=== PATIENT | male | born 1965 | race African-American/Black ===

== ENCOUNTER 2017-03-16 08:58 | Emergency (ER) | payer SELFPAY ==
[~2017-03-16] VITALS: Ht 170.2 cm; Wt 87.0 kg
[2017-03-16] MEDS ORDERED: KETOROLAC 60MG/2ML VIAL IM ONE (10:30)
[2017-03-16 10:48] VITALS: BP 107/77
== END 2017-03-16 11:08 | disposition home or self-care (01) ==
LOC: ER 09:07
DX: M54.5 Low back pain (principal); F17.200 Nicotine dependence, unspecified, uncomplicated; F12.10 Cannabis abuse, uncomplicated; V49.88XA Car occupant (driver) (passenger) injured in other specified transport accidents, initial encounter; Y93.89 Activity, other specified; Y92.410 Unspecified street and highway as the place of occurrence of the external cause; Y99.8 Other external cause status
CPT/HCPCS: 96372; 99283; J1885

== ENCOUNTER 2018-05-16 05:54 | Emergency (ER) | payer OTHER ==
[~2018-05-16] VITALS: Ht 182.9 cm; Wt 91.0 kg
[2018-05-16 05:59] VITALS: BP 134/82
== END 2018-05-16 09:30 | disposition left against medical advice (07) ==
LOC: ER 05:54
DX: Z53.21 Procedure and treatment not carried out due to patient leaving prior to being seen by health care provider (principal); F17.200 Nicotine dependence, unspecified, uncomplicated

== ENCOUNTER 2018-08-18 17:32 | Emergency (ER) | payer OTHER ==
[~2018-08-18] VITALS: Ht 170.2 cm; Wt 84.0 kg
[2018-08-18 18:37] VITALS: BP 141/103
[2018-08-18] MEDS ORDERED: GLUCAGON,HUMAN RECOMBINANT 1MG/VIAL IM ONE (20:15)
== END 2018-08-18 22:01 | disposition left against medical advice (07) ==
LOC: ER 17:32
DX: R13.10 Dysphagia, unspecified (principal); F12.10 Cannabis abuse, uncomplicated
CPT/HCPCS: 96372; 99283; J1610

== ENCOUNTER 2018-08-30 05:11 | Emergency (ER) | payer OTHER ==
[~2018-08-30] VITALS: Ht 170.2 cm; Wt 84.0 kg
[2018-08-30] MEDS ORDERED: VISCOUS LIDOCAINE 2% 15 ML UDC MM ONE (06:30)
[2018-08-30 06:50] VITALS: BP 157/94
== END 2018-08-30 06:58 | disposition home or self-care (01) ==
LOC: ER 05:11
DX: R13.10 Dysphagia, unspecified (principal); F12.10 Cannabis abuse, uncomplicated
CPT/HCPCS: 99283

== ENCOUNTER 2018-10-24 00:08 | Emergency (ER) | payer OTHER ==
[~2018-10-24] VITALS: Ht 170.2 cm; Wt 84.0 kg
[2018-10-24 02:46] LABS: CLARITY URINE CLEAR (CLEAR); COLOR URINE YELLOW (YELLOW); KETONES URINE TRACE (NEGATIVE); LEUKOCYTE ESTERASE URINE NEGATIVE (NEGATIVE); NITRITE URINE NEGATIVE (NEGATIVE); OCCULT BLOOD URINE NEGATIVE (NEGATIVE); PROTEIN URINE NEGATIVE (NEGATIVE); SPECIFIC GRAVITY URINE 1.028 (1.005-1.030)
[2018-10-24 02:50] LABS: BASOPHILS % 1.1 % (0.0-2.0); EOSINOPHILS % 6.1 % (0.0-5.0); HEMATOCRIT. 37.5 % (42.0-52.0); HEMOGLOBIN. 12.4 g/dL (14.0-18.0); LYMPHOCYTES % 26.3 % (20.0-50.0); MEAN CORPUSCULAR HEMOGLOBIN 30.4 pg (28.0-32.0); MEAN CORPUSCULAR VOLUME 91.8 fL (80.0-94.0); MEAN PLATELET VOLUME 8.4 fl (7.4-10.4); MONOCYTES % 13.2 % (2.0-8.0); NEUTROPHILS % 53.3 % (40.0-76.0); PLATELET 224 x1000/uL (130-400); RED BLOOD CELL COUNT 4.09 mill/uL (4.7-6.1)
[2018-10-24 02:57] LABS: CHLORIDE 109 mEq/L (98-107)
[2018-10-24 03:44] VITALS: BP 132/85
== END 2018-10-24 03:45 | disposition home or self-care (01) ==
LOC: ER 00:08
DX: R10.13 Epigastric pain (principal); F12.10 Cannabis abuse, uncomplicated; Z87.891 Personal history of nicotine dependence
CPT/HCPCS: 36415; 80053; 81003; 83605; 83690; 85025; 99283; Z7610

== ENCOUNTER 2019-01-01 10:06 | Emergency (ER) | payer MEDICAID, OTHER ==
[~2019-01-01] VITALS: Ht 170.2 cm; Wt 84.0 kg
[2019-01-01] MEDS ORDERED: KETOROLAC 30MG/ML VIAL IV STA (10:55)
[2019-01-01] MEDS ORDERED: SODIUM CHLORIDE 0.9% 1,000 ML IV ONE (10:55)
[2019-01-01] MEDS ORDERED: FAMOTIDINE 20MG/2ML VIAL IV STA (10:55)
[2019-01-01 11:23] LABS: BASOPHILS % 1.1 % (0.0-2.0); EOSINOPHILS % 3.6 % (0.0-5.0); HEMATOCRIT. 45.1 % (42.0-52.0); HEMOGLOBIN. 14.6 g/dL (14.0-18.0); LYMPHOCYTES % 15.2 % (20.0-50.0); MEAN CORPUSCULAR HEMOGLOBIN 30.5 pg (28.0-32.0); MEAN PLATELET VOLUME 8.4 fl (7.4-10.4); MONOCYTES % 7.6 % (2.0-8.0); NEUTROPHILS % 72.5 % (40.0-76.0); PLATELET 308 x1000/uL (130-400); RED BLOOD CELL COUNT 4.79 mill/uL (4.7-6.1); RED CELL DISTRIBUTION WIDTH 15.6 % (11.6-14.6)
[2019-01-01 11:29] LABS: CHLORIDE 106 mEq/L (98-107)
[2019-01-01 11:30] LABS: CLARITY URINE CLEAR (CLEAR); COLOR URINE YELLOW (YELLOW); KETONES URINE TRACE (NEGATIVE); LEUKOCYTE ESTERASE URINE NEGATIVE (NEGATIVE); NITRITE URINE NEGATIVE (NEGATIVE); OCCULT BLOOD URINE NEGATIVE (NEGATIVE); PROTEIN URINE NEGATIVE (NEGATIVE); SPECIFIC GRAVITY URINE 1.023 (1.005-1.030); UROBILINOGEN URINE 0.2 E.U./dL (0.2-1.0)
[2019-01-01 11:31] LABS: INR 0.9; PROTHROMBIN TIME 9.5 sec (9.6-11.0)
[2019-01-01 14:50] VITALS: BP 139/101
== END 2019-01-01 15:17 | disposition home or self-care (01) ==
LOC: ER 10:06
DX: R10.33 Periumbilical pain (principal); F12.10 Cannabis abuse, uncomplicated
CPT/HCPCS: 36415; 74176; 80053; 81003; 83690; 85025; 85610; 96361; 96374; 96375; 99284; J1885; J3490; J7030; Z7610

== ENCOUNTER 2019-01-21 06:08 | Emergency (ER) | payer MEDICAID ==
[~2019-01-21] VITALS: Ht 170.2 cm; Wt 85.0 kg
[2019-01-21 08:43] LABS: BASOPHILS % 0.9 % (0.0-2.0); EOSINOPHILS % 4.4 % (0.0-5.0); HEMATOCRIT. 41.8 % (42.0-52.0); HEMOGLOBIN. 13.6 g/dL (14.0-18.0); LYMPHOCYTES % 19.2 % (20.0-50.0); MEAN CORPUSCULAR HEMOGLOBIN 30.3 pg (28.0-32.0); MEAN CORPUSCULAR VOLUME 93.3 fL (80.0-94.0); MEAN PLATELET VOLUME 8.2 fl (7.4-10.4); MONOCYTES % 8.1 % (2.0-8.0); NEUTROPHILS % 67.4 % (40.0-76.0); PLATELET 301 x1000/uL (130-400); RED BLOOD CELL COUNT 4.49 mill/uL (4.7-6.1); RED CELL DISTRIBUTION WIDTH 15.7 % (11.6-14.6)
[2019-01-21 08:45] LABS: CLARITY URINE CLEAR (CLEAR); COLOR URINE YELLOW (YELLOW); KETONES URINE NEGATIVE (NEGATIVE); LEUKOCYTE ESTERASE URINE NEGATIVE (NEGATIVE); NITRITE URINE NEGATIVE (NEGATIVE); OCCULT BLOOD URINE NEGATIVE (NEGATIVE); PROTEIN URINE NEGATIVE (NEGATIVE); SPECIFIC GRAVITY URINE 1.024 (1.005-1.030); UROBILINOGEN URINE 0.2 E.U./dL (0.2-1.0)
[2019-01-21 08:50] LABS: CHLORIDE 110 mEq/L (98-107)
[2019-01-21 10:15] VITALS: BP 161/109
== END 2019-01-21 10:35 | disposition home or self-care (01) ==
LOC: ER 06:08
DX: R10.9 Unspecified abdominal pain (principal); R19.7 Diarrhea, unspecified; F12.10 Cannabis abuse, uncomplicated
CPT/HCPCS: 36415; 80053; 81003; 83690; 85025; 99283; Z7610

== ENCOUNTER 2019-10-15 16:14 | Emergency (ER) | payer MEDICAID ==
[~2019-10-15] VITALS: Ht 175.3 cm; Wt 82.0 kg
[2019-10-15] MEDS ORDERED: IBUPROFEN 600MG TABLET PO STA (19:02)
[2019-10-15 20:35] VITALS: BP 132/99
== END 2019-10-15 20:36 | disposition home or self-care (01) ==
LOC: ER 16:14
DX: S22.32XA Fracture of one rib, left side, initial encounter for closed fracture (principal); Y08.89XA Assault by other specified means, initial encounter; Y93.9 Activity, unspecified; Y92.9 Unspecified place or not applicable
CPT/HCPCS: 71101; 99283

== ENCOUNTER 2019-10-17 06:54 | Emergency (ER) | payer MEDICAID ==
[~2019-10-17] VITALS: Ht 170.2 cm; Wt 84.0 kg
[2019-10-17 07:02] VITALS: BP 124/85
[2019-10-17] MEDS ORDERED: KETOROLAC 60MG/2ML VIAL IM ONE (08:45)
== END 2019-10-17 09:26 | disposition home or self-care (01) ==
LOC: ER 06:54
DX: S22.5XXA Flail chest, initial encounter for closed fracture (principal); S27.9XXA Injury of unspecified intrathoracic organ, initial encounter; F12.10 Cannabis abuse, uncomplicated; X58.XXXA Exposure to other specified factors, initial encounter; Y93.89 Activity, other specified; Y92.89 Other specified places as the place of occurrence of the external cause; Y99.8 Other external cause status
CPT/HCPCS: 96372; 99283; J1885

== ENCOUNTER 2019-10-22 06:55 | Emergency (ER) | payer MEDICAID ==
[~2019-10-22] VITALS: Ht 170.2 cm; Wt 83.9 kg
[2019-10-22] MEDS ORDERED: OXYCODONE HCL/ACETAMINOPHEN 5/325MG TABLET PO ONE (07:45)
[2019-10-22 10:20] VITALS: BP 154/88
== END 2019-10-22 10:20 | disposition home or self-care (01) ==
LOC: ER 06:55
DX: R07.81 Pleurodynia (principal); R06.2 Wheezing; I51.7 Cardiomegaly
CPT/HCPCS: 71045; 99283

== ENCOUNTER 2020-07-19 06:32 | Emergency (ER) | payer MEDICAID ==
[~2020-07-19] VITALS: Ht 170.2 cm; Wt 84.0 kg
[2020-07-19] MEDS ORDERED: ACETAMINOPHEN 325MG TABLET PO ONE (07:15)
[2020-07-19] MEDS ORDERED: TETANUS, DIPHTHERIA, PERTUSSIS VAC/PF 0.5ML (>7YR OLD) IM ONE (07:15)
[2020-07-19] MEDS ORDERED: HYDROCHLOROTHIAZIDE 25MG TABLET PO ONE (07:15)
[2020-07-19] MEDS ORDERED: SULF1TAB48 PO (08:04)
[2020-07-19] MEDS ORDERED: CEPH500C2 PO (08:04)
[2020-07-19] MEDS ORDERED: TOPUD PO (08:04)
[2020-07-19] MEDS ORDERED: HYDR25TA PO (08:04)
[2020-07-19 08:26] VITALS: BP 163/99
== END 2020-07-19 08:28 | disposition home or self-care (01) ==
LOC: ER 06:38
DX: S81.852A Open bite, left lower leg, initial encounter (principal); I10 Essential (primary) hypertension; F12.10 Cannabis abuse, uncomplicated; F17.210 Nicotine dependence, cigarettes, uncomplicated; W54.0XXA Bitten by dog, initial encounter; Y93.89 Activity, other specified; Y92.018 Other place in single-family (private) house as the place of occurrence of the external cause
CPT/HCPCS: 90471; 90715; 93005; 99283

== ENCOUNTER 2021-03-10 23:29 | Inpatient (IN) | payer MEDICAID ==
[~2021-03-10] VITALS: Ht 177.8 cm; Wt 77.2 kg
[~2021-03-10 23:29] MED LIST: CEPH500C2 PO; ETOMIDATE 2MG/ML 10ML VIAL IV ONE; HYDR25TA PO; SODIUM CHLORIDE 0.9% 10ML VIAL ONE; SUCCINYLCHOLINE CHLORIDE 200MG/10ML IV ONE; SULF1TAB48 PO; TOPUD PO
[2021-03-11] VITALS (62 sets, daily range): BP systolic 39–181; BP diastolic 28–138
[2021-03-11 01:54] LABS: BASOPHILS % 0.4 % (0.0-2.0); EOSINOPHILS % 0.8 % (0.0-5.0); HEMATOCRIT. 43.7 % (42.0-52.0); LYMPHOCYTES % 24.1 % (20.0-50.0); MEAN CORPUSCULAR HEMOGLOBIN 30.3 pg (28.0-32.0); MEAN CORPUSCULAR VOLUME 94.8 fL (80.0-94.0); MEAN PLATELET VOLUME 8.6 fl (7.4-10.4); MONOCYTES % 5.5 % (2.0-8.0); NEUTROPHILS % 69.2 % (40.0-76.0); PLATELET 299 x1000/uL (130-400); RED BLOOD CELL COUNT 4.61 mill/uL (4.7-6.1); RED CELL DISTRIBUTION WIDTH 15.7 % (11.6-14.6)
[2021-03-11] MEDS ORDERED: NALOXONE HCL 1 MG/ML 2ML VIAL IV ONE (02:00)
[2021-03-11 02:01] LABS: CHLORIDE 105 mEq/L (98-107)
[2021-03-11 02:09] LABS: ETHANOL BLOOD 52 mg/dL
[2021-03-11 02:17] LABS: BG BASE EXCESS -6.7 mmol/L (-2.0-2.0); BG CARBOXYHEMOGLOBIN 1.8 % (0.5-1.5); BG DEOXYHEMOGLOBIN 3.8 % (0.0-5.0); BG FRACTION INSPIRED OXYGEN 100; BG HCO3 ACT 29.2 mmol/L (22.0-26.0); BG METHEMOGLOBIN 0.4 % (0.0-1.5); BG OXYGEN SATURATION 96.1 % (92.0-98.5); BG PCO2 133.9 mmHg (35.0-45.0); BG PH 6.957 (7.350-7.450); BG PO2 116.9 mmHg (75.0-100.0); BG SAMPLE SITE RIGHT RADIAL; BG TOTAL HEMOGLOBIN 14.9 g/dL (12.0-18.0); BG VENT MODE MASK - NRB
[2021-03-11] MEDS ORDERED: ETOMIDATE 2MG/ML 10ML VIAL IV ONE (02:30)
[2021-03-11] MEDS ORDERED: SUCCINYLCHOLINE CHLORIDE 200MG/10ML IV ONE (02:30)
[2021-03-11] MEDS ORDERED: PROPOFOL 10MG/ML 100ML 100 ML IV SCH (02:30)
[2021-03-11 04:22] LABS: CLARITY URINE CLEAR (CLEAR); COLOR URINE YELLOW (YELLOW); KETONES URINE TRACE (NEGATIVE); LEUKOCYTE ESTERASE URINE NEGATIVE (NEGATIVE); NITRITE URINE NEGATIVE (NEGATIVE); OCCULT BLOOD URINE NEGATIVE (NEGATIVE); PROTEIN URINE NEGATIVE (NEGATIVE); SPECIFIC GRAVITY URINE 1.014 (1.005-1.030); UROBILINOGEN URINE 0.2 E.U./dL (0.2-1.0)
[2021-03-11 04:31] LABS: *COCAINE SCREEN URINE PRESUMTIVE POSITIVE (NEGATIVE); METHADONE URINE SCREEN NEGATIVE (NEGATIVE); OPIATES URINE SCREEN NEGATIVE (NEGATIVE)
[2021-03-11 04:33] LABS: *AMPHETAMINES SCREEN URINE NEGATIVE (NEGATIVE); *BARBITURATES SCREEN URINE NEGATIVE (NEGATIVE); *BENZODIAZEPINES SCREEN URINE PRESUMTIVE POSITIVE (NEGATIVE); CANNABINOID URINE SCREEN PRESUMTIVE POSITIVE (NEGATIVE); PHENCYCLIDINE URINE SCREEN NEGATIVE (NEGATIVE)
[2021-03-11 05:44] LABS: BG BASE EXCESS -0.1 mmol/L (-2.0-2.0); BG CARBOXYHEMOGLOBIN 0.9 % (0.5-1.5); BG DEOXYHEMOGLOBIN 0.9 % (0.0-5.0); BG FRACTION INSPIRED OXYGEN 60; BG HCO3 ACT 23.9 mmol/L (22.0-26.0); BG METHEMOGLOBIN 0.2 % (0.0-1.5); BG OXYGEN SATURATION 99.1 % (92.0-98.5); BG PCO2 36.9 mmHg (35.0-45.0); BG PH 7.429 (7.350-7.450); BG PO2 169.9 mmHg (75.0-100.0); BG SAMPLE SITE RIGHT RADIAL; BG VENT MODE ac
[2021-03-11] MEDS ORDERED: LORAZEPAM 2MG/ML CPJ IV PRN (07:45)
[2021-03-11] MEDS ORDERED: DEXTROSE 50% WATER 50ML SYRINGE IV PRN (07:45)
[2021-03-11] MEDS ORDERED: INSULIN LISPRO 100 UNITS/ML SUBCUT SCH (08:20)
[2021-03-11] MEDS ORDERED: BLOOD SUGAR DIAGNOSTIC STRIP TEST SCH (09:00)
[2021-03-11] MEDS ORDERED: IPRATROPIUM/ALBUTEROL 0.5-3(2.5)MG/3ML NEB HHN PRN (10:45)
[2021-03-11] MEDS: PANTOPRAZOLE SODIUM 40 MG/VIAL IV SCH (11:59)
[2021-03-11] MEDS: SODIUM CHLORIDE 0.9% 1,000 ML IV SCH (11:59)
[2021-03-11] MEDS: ENOXAPARIN 40MG/0.4ML SYR SUBCUT SCH (12:00)
[2021-03-11] MEDS: INSULIN LISPRO 100 UNITS/ML SUBCUT SCH ×2 (12:00→18:00)
[2021-03-11] MEDS: PROPOFOL 10MG/ML 100ML 100 ML IV PRN (12:01)
[2021-03-11] MEDS: BLOOD SUGAR DIAGNOSTIC STRIP TEST SCH ×2 (12:47→18:36)
[2021-03-11 13:25] LABS: BASOPHILS % 0.4 % (0.0-2.0); EOSINOPHILS % 0.5 % (0.0-5.0); HEMATOCRIT. 40.4 % (42.0-52.0); HEMOGLOBIN. 12.9 g/dL (14.0-18.0); LYMPHOCYTES % 18.3 % (20.0-50.0); MEAN CORPUSCULAR HEMOGLOBIN 29.9 pg (28.0-32.0); MEAN CORPUSCULAR VOLUME 93.4 fL (80.0-94.0); MEAN PLATELET VOLUME 8.5 fl (7.4-10.4); MONOCYTES % 9.5 % (2.0-8.0); NEUTROPHILS % 71.3 % (40.0-76.0); PLATELET 245 x1000/uL (130-400); RED BLOOD CELL COUNT 4.32 mill/uL (4.7-6.1); RED CELL DISTRIBUTION WIDTH 15.3 % (11.6-14.6)
[2021-03-11 13:31] LABS: CHLORIDE 110 mEq/L (98-107)
[2021-03-11] MEDS: IPRATROPIUM/ALBUTEROL 0.5-3(2.5)MG/3ML NEB HHN SCH ×2 (14:06→20:00)
[2021-03-12] VITALS (79 sets, daily range): BP systolic 100–188; BP diastolic 67–131
[2021-03-12] MEDS: SODIUM CHLORIDE 0.9% 1,000 ML IV SCH ×3 (01:35→22:30)
[2021-03-12] MEDS: IPRATROPIUM/ALBUTEROL 0.5-3(2.5)MG/3ML NEB HHN SCH ×4 (02:04→21:20)
[2021-03-12] MEDS: PROPOFOL 10MG/ML 100ML 100 ML IV PRN ×2 (02:19→08:05)
[2021-03-12] MEDS: BLOOD SUGAR DIAGNOSTIC STRIP TEST SCH ×4 (06:00→18:59)
[2021-03-12] MEDS: INSULIN LISPRO 100 UNITS/ML SUBCUT SCH ×4 (06:00→19:08)
[2021-03-12] MEDS: PANTOPRAZOLE SODIUM 40 MG/VIAL IV SCH (09:02)
[2021-03-12] MEDS ORDERED: PROPOFOL 10MG/ML 100ML 100 ML IV PRN (10:45)
[2021-03-12] MEDS: ENOXAPARIN 40MG/0.4ML SYR SUBCUT SCH (12:23)
[2021-03-12] MEDS: AMLODIPINE 5MG TABLET PO SCH ×2 (12:23→21:50)
[2021-03-12 12:42] LABS: HEMATOCRIT 39.5 % (42.0-52.0); HEMOGLOBIN 12.9 g/dL (14.0-18.0); MEAN CORPUSCULAR HEMOGLOBIN 30.6 pg (28.0-32.0); PLATELET 211 x1000/uL (130-400); RED BLOOD CELL COUNT 4.21 mill/uL (4.7-6.1); RED CELL DISTRIBUTION WIDTH 15.4 % (11.6-14.6)
[2021-03-12 12:48] LABS: BG BASE EXCESS 0.2 mmol/L (-2.0-2.0); BG CARBOXYHEMOGLOBIN 0.6 % (0.5-1.5); BG DEOXYHEMOGLOBIN 1.9 % (0.0-5.0); BG FRACTION INSPIRED OXYGEN 40; BG HCO3 ACT 26.4 mmol/L (22.0-26.0); BG METHEMOGLOBIN 0.3 % (0.0-1.5); BG OXYGEN SATURATION 98.1 % (92.0-98.5); BG OXYHEMOGLOBIN 97.2 % (94.0-97.0); BG PCO2 49.3 mmHg (35.0-45.0); BG PH 7.347 (7.350-7.450); BG PO2 110.2 mmHg (75.0-100.0); BG SAMPLE SITE RIGHT RADIAL; BG TOTAL HEMOGLOBIN 13.4 g/dL (12.0-18.0); BG TOTAL RESPIRATORY RATE 11 b/min; BG VENT MODE VENT - SIMV
[2021-03-12 12:51] LABS: CHLORIDE 111 mEq/L (98-107)
[2021-03-12] MEDS: PIPERACILLIN/TAZOBACTAM 3.375G in DEXT 5% WATER 50ML IV SCH ×2 (15:15)
[2021-03-12] MEDS ORDERED: CLONIDINE 0.1MG TABLET PO PRN (15:15)
[2021-03-12] MEDS: HYDRALAZINE 20MG/ML VIAL IV PRN ×2 (15:16→21:51)
[2021-03-12 15:59] LABS: BG BASE EXCESS -0.7 mmol/L (-2.0-2.0); BG CARBOXYHEMOGLOBIN 0.5 % (0.5-1.5); BG DEOXYHEMOGLOBIN 2.7 % (0.0-5.0); BG FRACTION INSPIRED OXYGEN 40; BG HCO3 ACT 24.1 mmol/L (22.0-26.0); BG METHEMOGLOBIN 0.3 % (0.0-1.5); BG OXYGEN SATURATION 97.3 % (92.0-98.5); BG OXYHEMOGLOBIN 96.5 % (94.0-97.0); BG PCO2 40.7 mmHg (35.0-45.0); BG PH 7.391 (7.350-7.450); BG SAMPLE SITE LEFT RADIAL; BG TOTAL HEMOGLOBIN 13.5 g/dL (12.0-18.0); BG TOTAL RESPIRATORY RATE 15 b/min; BG VENT MODE VENT - CPAP
[2021-03-12 20:29] LABS: BG BASE EXCESS 1.8 mmol/L (-2.0-2.0); BG CARBOXYHEMOGLOBIN 0.6 % (0.5-1.5); BG DEOXYHEMOGLOBIN 1.8 % (0.0-5.0); BG FRACTION INSPIRED OXYGEN 40; BG HCO3 ACT 27.5 mmol/L (22.0-26.0); BG METHEMOGLOBIN 0.2 % (0.0-1.5); BG OXYGEN SATURATION 98.2 % (92.0-98.5); BG OXYHEMOGLOBIN 97.4 % (94.0-97.0); BG PCO2 47.3 mmHg (35.0-45.0); BG PH 7.383 (7.350-7.450); BG PO2 112.5 mmHg (75.0-100.0); BG SAMPLE SITE RIGHT RADIAL; BG TOTAL HEMOGLOBIN 13.8 g/dL (12.0-18.0); BG VENT MODE COOL AEROSOL
[2021-03-13] VITALS (16 sets, daily range): BP systolic 126–177; BP diastolic 79–121
[2021-03-13] MEDS: BLOOD SUGAR DIAGNOSTIC STRIP TEST SCH ×4 (00:33→18:47)
[2021-03-13] MEDS: IPRATROPIUM/ALBUTEROL 0.5-3(2.5)MG/3ML NEB HHN SCH ×4 (01:27→20:55)
[2021-03-13 05:07] LABS: BASOPHILS % 0.4 % (0.0-2.0); EOSINOPHILS % 0.7 % (0.0-5.0); HEMATOCRIT. 41.7 % (42.0-52.0); HEMOGLOBIN. 13.3 g/dL (14.0-18.0); LYMPHOCYTES % 18.1 % (20.0-50.0); MEAN CORPUSCULAR HEMOGLOBIN 30.1 pg (28.0-32.0); MEAN PLATELET VOLUME 9.1 fl (7.4-10.4); MONOCYTES % 7.2 % (2.0-8.0); NEUTROPHILS % 73.6 % (40.0-76.0); PLATELET 205 x1000/uL (130-400); RED BLOOD CELL COUNT 4.43 mill/uL (4.7-6.1); RED CELL DISTRIBUTION WIDTH 15.3 % (11.6-14.6)
[2021-03-13 05:20] LABS: CHLORIDE 108 mEq/L (98-107)
[2021-03-13] MEDS: INSULIN LISPRO 100 UNITS/ML SUBCUT SCH ×4 (05:22→18:00)
[2021-03-13] MEDS: PIPERACILLIN/TAZOBACTAM 3.375G in DEXT 5% WATER 50ML IV SCH ×3 (05:23→21:43)
[2021-03-13] MEDS: PANTOPRAZOLE SODIUM 40 MG/VIAL IV SCH (09:25)
[2021-03-13] MEDS: LISINOPRIL 5MG TABLET PO SCH (09:26)
[2021-03-13] MEDS: AMLODIPINE 5MG TABLET PO SCH ×2 (09:26→21:43)
[2021-03-13 11:45] LABS: BG BASE EXCESS 1.1 mmol/L (-2.0-2.0); BG CARBOXYHEMOGLOBIN 0.2 % (0.5-1.5); BG DEOXYHEMOGLOBIN 3.6 % (0.0-5.0); BG HCO3 ACT 25.9 mmol/L (22.0-26.0); BG METHEMOGLOBIN 0.2 % (0.0-1.5); BG OXYGEN SATURATION 96.4 % (92.0-98.5); BG PCO2 41.8 mmHg (35.0-45.0); BG PO2 84.8 mmHg (75.0-100.0); BG SAMPLE SITE RIGHT RADIAL; BG TOTAL HEMOGLOBIN 13.5 g/dL (12.0-18.0); BG VENT MODE COOL AEROSOL
[2021-03-13] MEDS: ENOXAPARIN 40MG/0.4ML SYR SUBCUT SCH (12:44)
[2021-03-14] VITALS (17 sets, daily range): BP systolic 124–178; BP diastolic 49–119
[2021-03-14] MEDS: INSULIN LISPRO 100 UNITS/ML SUBCUT SCH ×3 (06:00→14:05)
[2021-03-14] MEDS: BLOOD SUGAR DIAGNOSTIC STRIP TEST SCH ×3 (06:14→12:00)
[2021-03-14] MEDS: PIPERACILLIN/TAZOBACTAM 3.375G in DEXT 5% WATER 50ML IV SCH (06:16)
[2021-03-14] MEDS: AMLODIPINE 5MG TABLET PO SCH (09:05)
[2021-03-14] MEDS: PANTOPRAZOLE SODIUM 40 MG/VIAL IV SCH (09:05)
[2021-03-14] MEDS: LISINOPRIL 5MG TABLET PO SCH (09:05)
[2021-03-14] MEDS: IPRATROPIUM/ALBUTEROL 0.5-3(2.5)MG/3ML NEB HHN SCH ×3 (09:20→14:02)
[2021-03-14] MEDS: ENOXAPARIN 40MG/0.4ML SYR SUBCUT SCH (11:33)
[2021-03-14 12:35] LABS: BASOPHILS % 0.6 % (0.0-2.0); EOSINOPHILS % 1.9 % (0.0-5.0); HEMATOCRIT. 39.7 % (42.0-52.0); HEMOGLOBIN. 13.1 g/dL (14.0-18.0); LYMPHOCYTES % 21.5 % (20.0-50.0); MEAN CORPUSCULAR HEMOGLOBIN 30.4 pg (28.0-32.0); MEAN CORPUSCULAR VOLUME 92.4 fL (80.0-94.0); MEAN PLATELET VOLUME 8.3 fl (7.4-10.4); MONOCYTES % 7.3 % (2.0-8.0); NEUTROPHILS % 68.7 % (40.0-76.0); PLATELET 247 x1000/uL (130-400); RED CELL DISTRIBUTION WIDTH 14.6 % (11.6-14.6)
[2021-03-14 12:41] LABS: CHLORIDE 106 mEq/L (98-107)
[2021-03-14] MEDS ORDERED: CEFAZOLIN 2,000 MG in DEXT 5% WATER 100 ML IV SCH (13:00)
[2021-03-14] MEDS ORDERED: LEVO750T46 MT (13:25)
[2021-03-14] MEDS ORDERED: LISI-186 PO (13:25)
[2021-03-14] MEDS ORDERED: AMLO5TAB88 PO (13:25)
== END 2021-03-14 16:50 | disposition home or self-care (01) | DRG 812 ==
LOC: ER 23:29 → MICUNO 03-11 03:50 → ENRESERV 03-11 07:23
PROVIDERS: ADMIT Internal Medicine; ATTEND Internal Medicine
PROC: 5A1945Z Respiratory Ventilation, 24-96 Consecutive Hours (ICD-10-PCS; principal; 2021-03-11)
PROC: 0BH17EZ Insertion of Endotracheal Airway into Trachea, Via Natural or Artificial Opening (ICD-10-PCS; 2021-03-11)
DX: T42.4X1A Poisoning by benzodiazepines, accidental (unintentional), initial encounter (principal); J96.01 Acute respiratory failure with hypoxia; G92.8 Other toxic encephalopathy; J96.02 Acute respiratory failure with hypercapnia; J15.0 Pneumonia due to Klebsiella pneumoniae; F14.10 Cocaine abuse, uncomplicated; Z79.899 Other long term (current) drug therapy; R73.9 Hyperglycemia, unspecified; T40.5X1A Poisoning by cocaine, accidental (unintentional), initial encounter; T40.721A Poisoning by synthetic cannabinoids, accidental (unintentional), initial encounter; Y92.89 Other specified places as the place of occurrence of the external cause; Z20.822 Contact with and (suspected) exposure to COVID-19
CPT/HCPCS: 36415; 36600; 71045; 80048; 80053; 80305; 80320; 81003; 82140; 82375; 82805; 82962; 83036; 83880; 84145; 84443; 84478; 84484; 85025; 85027; 87070; 87077; 87186; 87426; 93005; 94002; 94003; 94640; 97162; 99291; C9113; J0330; J0360; J0690; J1650; J1815; J2310; J2543; J2704; J3490; J7030; J7040; J7060; A4315; G0480

== ENCOUNTER 2021-12-30 06:03 | Emergency (ER) | payer MEDICAID ==
[~2021-12-30] VITALS: Ht 170.2 cm; Wt 80.7 kg
[~2021-12-30 06:03] MED LIST changes: +AMLO5TAB88 PO; -CEPH500C2 PO; -ETOMIDATE 2MG/ML 10ML VIAL IV ONE; -HYDR25TA PO; +LEVO750T46 MT; +LISI-186 PO; -SODIUM CHLORIDE 0.9% 10ML VIAL ONE; -SUCCINYLCHOLINE CHLORIDE 200MG/10ML IV ONE; -SULF1TAB48 PO; -TOPUD PO
[2021-12-30] MEDS ORDERED: ONDANSETRON HCL 4MG/2ML INJ IV STA (06:45)
[2021-12-30] MEDS ORDERED: MORPHINE SULFATE 4 MG/ML CPJ (NOT FOR IM USE) IV STA (06:45)
[2021-12-30] MEDS ORDERED: KETOROLAC 30MG/ML VIAL IV STA (06:45)
[2021-12-30] MEDS ORDERED: SODIUM CHLORIDE 0.9% 1,000 ML IV ONE (06:45)
[2021-12-30 08:48] LABS: BASOPHILS % 0.8 % (0.0-2.0); EOSINOPHILS % 3.3 % (0.0-5.0); HEMATOCRIT. 41.4 % (42.0-52.0); HEMOGLOBIN. 13.4 g/dL (14.0-18.0); LYMPHOCYTES % 17.8 % (20.0-50.0); MEAN CORPUSCULAR HEMOGLOBIN 30.2 pg (28.0-32.0); MEAN CORPUSCULAR VOLUME 93.1 fL (80.0-94.0); MEAN PLATELET VOLUME 8.8 fl (7.4-10.4); MONOCYTES % 14.5 % (2.0-8.0); NEUTROPHILS % 63.6 % (40.0-76.0); PLATELET 282 x1000/uL (130-400); RED BLOOD CELL COUNT 4.45 mill/uL (4.7-6.1); RED CELL DISTRIBUTION WIDTH 14.5 % (11.6-14.6)
[2021-12-30 09:00] LABS: CHLORIDE 103 mEq/L (98-107)
[2021-12-30 09:12] LABS: ETHANOL BLOOD < 10 mg/dL
[2021-12-30 12:00] LABS: *AMPHETAMINES SCREEN URINE NEGATIVE (NEGATIVE); *BARBITURATES SCREEN URINE NEGATIVE (NEGATIVE); *BENZODIAZEPINES SCREEN URINE PRESUMTIVE POSITIVE (NEGATIVE); *COCAINE SCREEN URINE PRESUMTIVE POSITIVE (NEGATIVE); CANNABINOID URINE SCREEN PRESUMTIVE POSITIVE (NEGATIVE); METHADONE URINE SCREEN NEGATIVE (NEGATIVE); OPIATES URINE SCREEN PRESUMTIVE POSITIVE (NEGATIVE); PHENCYCLIDINE URINE SCREEN NEGATIVE (NEGATIVE)
[2021-12-30] MEDS ORDERED: TRAM50TA MT (12:16)
[2021-12-30] MEDS ORDERED: IBUP-2029 MT (12:16)
[2021-12-30 12:23] VITALS: BP 124/76
== END 2021-12-30 13:30 | disposition home or self-care (01) ==
LOC: ER 06:03
DX: R07.89 Other chest pain (principal); F17.200 Nicotine dependence, unspecified, uncomplicated; I10 Essential (primary) hypertension
CPT/HCPCS: 36415; 71045; 80053; 80305; 80320; 83690; 83880; 84484; 85025; 93005; 96361; 96374; 96375; 99285; J1885; J2270; J2405; J7030; Z7610; G0480